=== PATIENT | male | born 1995 | race Caucasian/White ===

== ENCOUNTER → 2020-11-12 10:09 | Outpatient (BNVA) | payer BC, SELFPAY | PROVIDERS: Family Provider Family Medicine; Visit Provider Nurse Practitioner Family | DX: R03.0 Elevated blood-pressure reading, without diagnosis of hypertension (principal) | CPT/HCPCS: 80053; 80061; 84443; 85025 ==

== ENCOUNTER 2020-12-27 10:55 | Outpatient (CLI) | payer BC, SELFPAY ==
--- NOTE | 2020-12-27 11:05 | CT_ITS ---
WS: [id number] Exam: CT head wo con* [id number] Date/Time of Exam: 12/27/2020 11:06 AM Reason For Exam: R51.9 - Headache, unspecified DLP: 992.[address] scans at [facility] use at least one of these dose optimization techniques: automat ed exposure control; mA and/or kV adjustment per patient size (includes targeted exams where dose is matched to clinical indication); or iterative reconstruction. No sign of acute intracranial bleed or space-occupying mass. The ventricles and basal cisterns are no rmal in size. No extra-axial fluid collections are seen. The skull is intact. The mastoids and facial sinuses are clear. Normal orbits and optic globes. CT/CT head wo con* [id number] IMPRESSION: 1. Unremarkable noncontrast CT scan of the brain.
== END 2020-12-27 10:56 | disposition home or self-care (01) ==
PROVIDERS: Visit Provider Nurse Practitioner Family
DX: R51.9 Headache, unspecified (principal); R44.9 Unspecified symptoms and signs involving general sensations and perceptions
CPT/HCPCS: 70450; 80307; 81000

== ENCOUNTER 2021-04-13 13:54 | Outpatient (CLI) | payer BC, SELFPAY ==
--- NOTE | 2021-04-13 14:15 | USCV_ITS ---
Caesar Bobo Age: 25 Gender: M : 1995 Exam Date: 04/13/2021 14:12 Ordering Phys: Kelli Gabriel MD ([email or web address]) Technologist: Exam Location: [facility] – [place] Indication: MUMUR BP: 136 / 76 HR: 64 Rhythm: Sinus Technical Quality: Excellent MEASUREMENTS (Male / Female) Normal Values 2D ECHO LV Diastolic Diameter PLAX 4.8 cm 4.2 - 5.9 / 3.9 - 5.3 cm LV Systolic Diameter PLAX 2.6 cm IVS Diastolic Thickness 1.0 cm 0.6 - 1.0 / 0.6 - 0.9 cm IVS Systolic Thickness 1.3 cm LVPW Diastolic Thickness 1.0 cm 0.6 - 1.0 / 0.6 - 0.9 cm LVPW Systolic Thickness 1.3 cm LVOT Diameter 2.0 cm LV Ejection Fraction 2D Teich 77.5 % LV Ejection Fraction MOD 2C 77.2 % LV Ejection Fraction 2C AL 76.2 % LA Diameter 3.6 cm LA Width 3.6 cm LA Height 4.4 cm RA Width 3.7 cm RA Height 3.7 cm M-MODE LV Diastolic Diameter MM 5.8 cm 4.2 - 5.9 / 3.9 - 5.3 cm LV Systolic Diameter MM 3.3 cm LV Ejection Fraction MM Teich 73.1 % IVS Diastolic Thickness MM 1.0 cm 0.6 - 1.0 / 0.6 - 0.9 cm IVS Systolic Thickness MM 1.8 cm LVPW Diastolic Thickness MM 1.1 cm 0.6 - 1.0 / 0.6 - 0.9 cm LVPW Systolic Thickness MM 1.7 cm RV Diastolic Diameter MM 1.7 cm Aortic Annulus Diameter 3.5 cm LA Ao Ratio MM 1.1 MV E Point Septal Separation 0.8 cm DOPPLER AV Peak Velocity 147.0 cm/s LVOT Peak Velocity 149.0 cm/s AV Area Cont Eq vti 3.1 cm squared AV Area Cont Eq pk 3.3 cm squared MV Area PHT 5.0 cm squared Mitral E to A Ratio 1.1 MV E' Velocity 42.5 cm/s Mitral E to MV E' Ratio 4.7 Mitral E to LV E' Lateral Ratio 4.0 Mitral E to LV E' Septal Ratio 5.9 FINDINGS Left Ventricle Normal left ventricular size, systolic function and wall thickness, with no regional wall motion abnormalities. Left ventricular ejection fraction is estimated at 70 %. Normal diastolic function. Right Ventricle Normal right ventricular size and systolic function. RVSP could not be calculated due to incomplete tricuspid regurgitation velocity profile. Right Atrium Normal right atrial size. Right atrial pressure estimated at 3 mmHg. Left Atrium Normal left atrial size. Mitral Valve Structurally normal mitral valve. No mitral valve stenosis. Trace mitral valve regurgitation. Aortic Valve Structurally normal trileaflet aortic valve. No aortic valve stenosis. No aortic valve regurgitation. Tricuspid Valve Structurally normal tricuspid valve. No tricuspid valve stenosis. Trace to mild tricuspid valve regurgitation. Pulmonic Valve Structurally normal pulmonic valve. No pulmonary valve stenosis. Pericardium No pericardial effusion. Aorta Normal size aortic root and proximal ascending aorta. Normal- sized inferior vena cava with normal respiratory variation. CONCLUSIONS 1. Normal left ventricular size, systolic function and wall thickness, with no regional wall motion abnormalities. Left ventricular ejection fraction is estimated at 70 %. Normal diastolic function. 2. Normal right ventricular size and systolic function. 3. Trace to mild tricuspid valve regurgitation. 4. Right atrial pressure estimated at 3 mmHg. 5. No pericardial effusion. 6. No prior similar studies to compare. Kelli Gabriel MD (Electronically Signed) Final Date: 15 April 2021 15:08 S
== END 2021-04-13 13:55 | disposition home or self-care (01) ==
LOC: US 13:59
PROVIDERS: PCP Nurse Practitioner; Visit Provider Internal Medicine Cardiovascular Disease
DX: R55 Syncope and collapse (principal); R01.1 Cardiac murmur, unspecified; I07.1 Rheumatic tricuspid insufficiency
CPT/HCPCS: 93306

== ENCOUNTER → 2021-05-09 08:49 | Outpatient (BNVA) | payer BC, SELFPAY | PROVIDERS: PCP Nurse Practitioner; Visit Provider Specialist | DX: G56.23 Lesion of ulnar nerve, bilateral upper limbs (principal); G56.02 Carpal tunnel syndrome, left upper limb; F17.210 Nicotine dependence, cigarettes, uncomplicated | CPT/HCPCS: 95886; 95910 ==

== ENCOUNTER → 2022-07-05 10:28 | Outpatient (BNVA) | payer SELFPAY | PROVIDERS: PCP Nurse Practitioner; Visit Provider Nurse Practitioner Family | DX: R50.9 Fever, unspecified (principal); J10.1 Influenza due to other identified influenza virus with other respiratory manifestations | CPT/HCPCS: 87400 ==

== ENCOUNTER → 2024-09-05 14:42 | Outpatient (BNVA) | payer SELFPAY | PROVIDERS: PCP Nurse Practitioner; Visit Provider Nurse Practitioner Family | DX: R50.9 Fever, unspecified (principal) | CPT/HCPCS: 87400; 87426; 87880 ==

== ENCOUNTER 2025-08-01 18:48 | Emergency (ER) | payer SELFPAY ==
[2025-08-01 18:52] VITALS: BP 159/93; PULSE 116; RESP 16; TEMP 36.9; O2SAT 98; BMI 27.1
--- OUTSIDE RECORDS SUMMARY | 2025-08-01 18:53 | XMS_ITS | Encounter Summary ---
Author Organization [facility] Address [address] [place] [address] Care Team Providers Care Panelbeater Name Role Phone Andres Xiao MD Primary Care Provider [phone] Encounter Details Date Type Department Care Team (Late st Contact Info) Description 12/08/2009 Ancillary Orders [facility] [address] [place] [address] Chino Barry MD NO ADDRESS ON FILE Pain Social History Tobacco Use Types Packs/Day Years Used Date Smoking Tobacco: Never Alcohol Use Standard Drinks/Week Comments No 0 (1 standard drink = 0.6 oz pur e alcohol) Sex and Gender Information Value Date Recorded Sex Assigned at Not on file 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 Growth plate is closed. Procedure Note Chino Barry MD - 12/09/2009 X-rays of the knee shows no obvious bony abnormalities. Growth plate isclosed. us Chino Barry MD DIAGNOSTIC IMAGING ORDERAB LES Final Result documented in this encounter Visit Diagnoses Diagnosis Pain Generalized pain documented in this encounter Care Teams Panelbeater Relationship Specialty Start Date End Date Andres Xiao MD PCP - General Internal Medicine 12/08/09 documented as of this encounter
--- OUTSIDE RECORDS SUMMARY | 2025-08-01 18:53 | XMS_ITS | Clinical Summary ---
Author Organization [facility] Address [address] [place] [address] Care Team Providers Care Scrap Metal Collector Name Role Phone Andres Xiao MD Primary Care Provider [phone] Allergies Active Allergy Reactions Criticality Noted Date Comments Ceclor Cd Rash Low 12/08/2009 Erythromycin Rash Low 12/08/2009 Medications No known medications Active Problems Problem Noted Date Diagnosed Date Torn ACL (anterior cruciate ligament) 12/09/2009 Immunizations Immunization Administration Dates Next Due (TDVAX)(7 YRS UP) TETANUS AN D DIPHTHERIA TOXOIDS, ADSORBED (2 LF OF TETANUS TOXOID AND 2 LF OF DIPHTHERIA TOXOID), 0.5ML (PF), IM 09/09/2007 Social History Tobacco Use Types Packs/Day Years Used Date Smoking Tobacco: Never Alcohol Use Standard Drinks/Week Comments No 0 (1 standard drink = 0.6 oz pur e alcohol) Sex and Gender Information Value Date Recorded Sex Assigned at Not on file 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 Gender Identity Not on file Sexual Orientation Not on file Last Filed Vital Signs Vital Sign Reading Time Taken Comments Blood Pressure 134/66 12/09/2009 3:15 PM CDT Pulse 74 12/09/2009 3:15 PM CDT Temperature 36.4 C (97.6 F) 12/09/2009 11:59 AM CDT Respiratory Rate 16 12/09/2009 3:15 PM CDT Oxygen Saturation 97% 12/09/2009 3:15 PM CDT Inhaled Oxygen Concentration - - Weight 77.6 kg (171 lb) 12/09/2009 8:11 AM CDT Height 182.9 cm (6') 12/09/2009 8:11 AM CDT Body Mass Index 23.19 12/09/2009 8:11 AM CDT Plan of Treatment Health Maintenance Due Date Last Done Comments DTAP/TDAP/TD VACCINES (2 - Tdap) 09/10/2007 09/09/19 08 HEPATITIS B VACCINES (1 of 3 - 19+ 3-dose series) 05/06 INFLUENZA VACCINE (#1) 2025 HPV VACCINES (No Doses Required) Completed Medical Devices Implanted Type Area Wire Twister Device Identifier Shelf Expiration Date Model / Serial / Lot Cinch Meniscal Crv Tip Ar-4500 Implanted:Qty: 1 on 12/09/2009 at [facility] [place] Right: Knee [employer] 10/03/2014 AR-4500 / / [id number] Guardsman Femoral Interference Screw Implanted:Qty: 1 on 12/09/2009 at [facility] Screw Right: Knee [employer]- [employer] C8325 / / [id number] - [id number] Implanted:Qty: 1 on 12/09/2009 at [facility] Screw Right: Knee [employer]MED- [employer] 09/11/2014 [id number] / [id number] / [id number] [place] Advance Directives For more information, please contact: [phone] * Full Code (Latest Code Status on File) Date Activated Date Inactivated Comments 12/09/2009 9:08 AM 12/10/2009 2:32 AM * Full Code Date Activated Date Inactivated Comments 12/09/2009 8:11 AM 12/09/2009 9:08 AM Care Teams Scrap Metal Collector Relationship Specialty Start Date End Date Andres Xiao MD PCP - General Internal Medicine 12/08/09
--- OUTSIDE RECORDS SUMMARY | 2025-08-01 18:53 | XMS_ITS | Clinical Summary ---
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 Gender Identity Not on file Sexual Orientation Not on file Plan of Treatment Health Maintenance Due Date Last Done Comments DTAP/TDAP/TD VACCINES (2 - Tdap) 09/10/2007 09/09/19 08 HEPATITIS B VACCINES (1 of 3 - 19+ 3-dose series) 05/06 INFLUENZA VACCINE (#1) 2025 HPV VACCINES (No Doses Required) Completed Medical Devices Implanted Type Area Brick Tosser Device Identifier Shelf Expiration Date Model / Serial / Lot Cinch Meniscal Crv Tip Ar-4500 Implanted:Qty: 1 on 12/09/2009 [place] Right: Knee [employer] 10/03/2014 AR-4500 / / [id number] Guardsman Femoral Interference Screw Implanted:Qty: 1 on 12/09/2009 Screw Right: Knee [employer]MED- [employer] C8325 / / [id number] - [id number] Implanted:Qty: 1 on 12/09/2009 Screw Right: Knee [employer]- [employer] 09/11/2014 [id number] / [id number] / [id number] Care Teams Battery Test Engineer Relationship Specialty Start Date End Date Andres Xiao MD PCP - General Internal Medicine 12/08/09
--- NOTE | 2025-08-01 19:30 | CTR_ITS ---
PROCEDURE INFORMATION: Exam: CT Cervical Spine Without Contrast Exam date and time: 08/01/2025 7:55 PM Age: 30 years old Clinical indication: Injury or trauma; Blunt trauma; Fall off of the roof of a camper with head strike. C/O head, neck, and upper back pain. TECHNIQUE: Imaging protocol: Computed tomography of the cervical spine without contrast. Total images: 302 Radiation optimization: All CT scans at this facility use at least one of these dose optimization techniques: automated exposure control; mA and/or kV adjustment per patient size (includes targeted exams where dose is matched to clinical indication); or iterative reconstruction. COMPARISON: 1. CT head wo con* [id number] 08/01/2025 7:[address] head wo con* [id number] 12/27/2020 11:09 AM RADIATION DOSE METRICS: Total DLP (mGy-cm): 338.67 FINDINGS: Bones/joints: Straightening of the normal cervical lordosis. Unremarkable. No fracture. Normal alignment. C1-C2: Atlanto-odontoid mild degenerative changes with maintained alignment and no acute subluxation. C2-C3: No significant disc bulge or herniation. No severe spinal canal stenosis. No significant neural foraminal narrowing. Unremarkable facets. C3-C4: No significant disc bulge or herniation. No severe spinal canal stenosis. No significant neural foraminal narrowing. Unremarkable facets. C4-C5: No significant disc bulge or herniation. No severe spinal canal stenosis. No significant neural foraminal narrowing. Unremarkable facets. Mild degenerative disc height loss and minimal vacuum phenomenon at the C5 superior endplate. Small ventral (anterior) disc osteophytic ridge formation. C5-C6: No significant disc bulge or herniation. No severe spinal canal stenosis. No significant neural foraminal narrowing. Unremarkable facets. Small ventral (anterior) disc osteophytic ridge formation. C6-C7: No significant disc bulge or herniation. No severe spinal canal stenosis. No significant neural foraminal narrowing. Unremarkable facets. C7-T1: No significant disc bulge or herniation. No severe spinal canal stenosis. No significant neural foraminal narrowing. Unremarkable facets. T1-T2: No significant disc bulge or herniation. No severe spinal canal stenosis. No significant neural foraminal narrowing. Unremarkable facets. Spinal epidural space: No abnormal epidural masses or spinal canal fluid collections. Brain: Normal visualized portions of the cerebellum, arti, and medulla. Pharynx: Nasopharynx symmetric with normal adenoids, lateral recesses, and Eustachian tube orifices. Oropharynx with normal tonsillar pillars, palatine tonsils, tongue base, and vallecula. Hypopharynx with normal piriform sinuses, posterior wall, and postcricoid region. Pharyngeal mucosa smoothly contoured; airway patent. Incidental palatine tonsillith(s), small, well-defined calcifications; typically benign incidental finding rarely associated with odynophagia, halitosis, recurrent infections. Larynx: Laryngeal airway patent. Supraglottic, glottic, and subglottic structures symmetric without thickening or mass. Epiglottis and aryepiglottic folds normal. Preepiglottic and paraglottic fat preserved. True vocal cords symmetric without mass, thickening, or edema.LL Salivary glands: Parotid and submandibular salivary glands are normal. Thyroid: Thyroid normal. Trachea: Lower airway patent without internal defects, secretions, or debris. Lungs: Visualized portions of the lung apices are normal. Vasculature: Normal insofar as visualized. Lymph nodes: No lymphadenopathy. Soft tissues: No pathologic paraspinal soft tissue abnormality. CT/CT cervical spin wo con* [id number] IMPRESSION: 1. No cervical vertebral compression fracture deformity or malalignment. 2. No significant congenital or degenerative acquired stenosis of the spinal canal or neural foramina. 3. Mild midcervical degenerative manifestations as described above in detail at individual levels. 4. Straightening of the normal cervical lordosis. Likely postural or secondary to muscle strain/spasm.
--- NOTE | 2025-08-01 19:30 | CTR_ITS ---
PROCEDURE INFORMATION: Exam: CT Thoracic Spine Without Contrast Exam date and time: 08/01/2025 7:57 PM Age: 30 years old Clinical indication: Injury or trauma; Blunt trauma (contusions or hematomas); Fall off of the roof of a camper with head strike. C/O head, neck, and upper back pain. TECHNIQUE: Imaging protocol: Computed tomography of the thoracic spine without contrast. Radiation optimization: All CT scans at this facility use at least one of these dose optimization techniques: automated exposure control; mA and/or kV adjustment per patient size (includes targeted exams where dose is matched to clinical indication); or iterative reconstruction. COMPARISON: CT cervical spin wo con* [id number] 08/01/2025 7:55 PM RADIATION DOSE METRICS: Total DLP (mGy-cm): 1615.21 FINDINGS: Bones/joints: There is a very subtle buckling of the lateral left cortex of the T4 vertebral body on coronal image 36 series 7 and a subtle cortical discontinuity on the right side on image 37 series 7. Axial images, specifically image 49 series 4 so some irregular cortical contour not matched at T3 or T5. Remaining thoracic vertebra are apparently intact with normal morphology and density. Soft tissues: Unremarkable. CT/CT thoracic spin wo con* [id number] IMPRESSION: Suspect very subtle compression fracture of T4. Consider MRI for further evaluation.
--- NOTE | 2025-08-01 19:31 | CTR_ITS ---
PROCEDURE INFORMATION: Exam: CT Head Without Contrast Exam date and time: 08/01/2025 7:53 PM Age: 30 years old Clinical indication: Injury or trauma; Blunt trauma (contusions or hematomas); Fall off of the roof of a camper with head strike. C/O head, neck, and upper back pain. TECHNIQUE: Imaging protocol: Computed tomography of the head without contrast. Total images: 3 Radiation optimization: All CT scans at this facility use at least one of these dose optimization techniques: automated exposure control; mA and/or kV adjustment per patient size (includes targeted exams where dose is matched to clinical indication); or iterative reconstruction. COMPARISON: CT head wo con* [id number] 12/27/2020 11:09 AM RADIATION DOSE METRICS: Total DLP (mGy-cm): 1078.09 FINDINGS: Brain: Brain parenchyma demonstrates no unexpected involutional change or volume loss. Deep white matter attenuation is normal for patient of this age. No specific abnormal density within the brain parenchyma. No mass-effect or edema, or pathologic shift of midline structures. No acute intracranial hemorrhage. Satisfactory kuhn-white matter differentiation. Normal anatomy of the posterior fossa, cerebellum, arti and medulla. Cerebral ventricles: CSF spaces demonstrate no unexpected enlargement of the ventricles, cisterns and other subarachnoid spaces; appropriate for patient's age. Paranasal sinuses: Sinuses appear normal insofar as partially visualized. Mastoid air cells: Visualized mastoid air cells and tympanic cavities are clear. Bones: No intrinsic osseous abnormality identified. No acute displaced fracture, subluxation or dislocation. Soft tissues: Left frontal scalp laceration with a small volume of subcutaneous emphysema. No unexpected radiopaque foreign body within the field of view. Vasculature: Satisfactory major vessel density and caliber characteristic of flowing intravascular blood. CT/CT head wo con* [id number] IMPRESSION: 1. No acute intracranial abnormalities identified. Specifically no CT evidence of mass, hemorrhage, or acute infarction. 2. Left frontal scalp laceration with a small volume of subcutaneous emphysema. 3. No acute displaced fracture, subluxation or dislocation.
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
== END 2025-08-01 21:06 | disposition home or self-care (01) ==
PROVIDERS: Emergency Provider Family Medicine; PCP Nurse Practitioner
DX: S01.01XA Laceration without foreign body of scalp, initial encounter (principal); S22.040A Wedge compression fracture of fourth thoracic vertebra, initial encounter for closed fracture; W13.2XXA Fall from, out of or through roof, initial encounter; Z87.891 Personal history of nicotine dependence
CPT/HCPCS: 12002; 70450; 72125; 72128; 99284; 99291